=== PATIENT | male | born 1980 | race Hispanic/Latino ===

== ENCOUNTER 2020-07-06 14:04 | Inpatient (IN) | payer SELFPAY ==
[2020-07-06 15:33] LABS: ALT (SGPT) 65 U/L (8-55); AST (SGOT) 93 U/L (5-34); Albumin 3.3 g/dL (3.5-5.0); Alkaline Phosphatase 58 U/L (40-110); Anion Gap 11 mmol/L (10-20); BUN (Urea Nitrogen) 10 mg/dL (8.9-20.6); Calc. Creatinine Clearance 0 mL/min (70-130); Calcium 8.3 mg/dL (7.8-10.44); Carbon Dioxide 26 mmol/L (22-29); Chloride 98 mmol/L (98-107); Globulin 3.1 g/dL (2.4-3.5); Glucose 137 mg/dL (70-105); Potassium 3.8 mmol/L (3.5-5.1); Protein, Total 6.4 g/dL (6.0-8.3); Sodium 131 mmol/L (136-145)
[2020-07-06 15:36] LABS: #Monocytes 0.3 10x3/uL (0.0-1.1); #Neutrophils 6.5 10x3/uL (1.5-8.4); %Basophils 0.1 % (0.0-2.0); %Lymphocytes 6.1 % (18.0-47.0); %Monocytes 3.9 % (0.0-10.0); %Neutrophils 89.2 % (40.0-75.0); Hemoglobin 14.1 g/dL (13.5-17.5); Mean Corpuscular HGB CONC 34.6 g/dL (32.0-36.0); Mean Corpuscular Hemoglobin 29.3 pg (27.0-33.0); Mean Corpuscular Volume 84.4 fl (81.2-95.1); Mean Platelet Volume 10.5 fl (7.4-10.4); Platelet Count 155 10x3/uL (150-450); RBC Distribution Width 12.1 % (11.5-14.5); Red Blood Cell (RBC) Count 4.82 10x6/uL (4.32-5.72); White Blood Cell (WBC) Count 7.3 10x3/uL (3.5-10.5)
[2020-07-06] MEDS ORDERED: Dexamethasone 10 MG/ML VIAL ONE (15:40)
[2020-07-06] MEDS ORDERED: Acetaminophen 500 MG TAB ONE (15:40)
[2020-07-06] MEDS ORDERED: Guaifenesin DM 100-10/5 ML UDCUP PO PRN (16:53)
[2020-07-06] MEDS ORDERED: HYDROcodone/Acetaminophen 5/325 mg Tablet PO PRN (16:53)
[2020-07-06] MEDS ORDERED: Ondansetron PF 4 MG/2 ML Vial IVP PRN (16:53)
[2020-07-06] MEDS ORDERED: Bisacodyl 5 MG TAB PO PRN (16:53)
[2020-07-06] MEDS ORDERED: Acetaminophen 325 MG TAB PO PRN (16:53)
[2020-07-06] MEDS ORDERED: cefTRIAXone\\ROCEPHIN 1 GM in Sodium Chloride 0.9% 100 ML IVPB SCH (17:00)
[2020-07-06 19:52] VITALS: BMI 32.3
[2020-07-06] MEDS: Cefepime 2 GM in Sodium Chloride 0.9% 100 ML IVPB SCH (21:35)
[2020-07-07 04:05] LABS: Legionella Urinary Ag Negative (Negative); Strep pneumo Urine Ag NEGATIVE (NEGATIVE)
[2020-07-07 07:30] LABS: #Monocytes 0.2 10x3/uL (0.0-1.1); #Neutrophils 4.9 10x3/uL (1.5-8.4); %Basophils 0.2 % (0.0-2.0); %Lymphocytes 8.4 % (18.0-47.0); %Monocytes 4.3 % (0.0-10.0); %Neutrophils 86.7 % (40.0-75.0); Hemoglobin 13.7 g/dL (13.5-17.5); Mean Corpuscular HGB CONC 33.9 g/dL (32.0-36.0); Mean Corpuscular Hemoglobin 29.1 pg (27.0-33.0); Mean Platelet Volume 10.1 fl (7.4-10.4); Platelet Count 197 10x3/uL (150-450); RBC Distribution Width 12.1 % (11.5-14.5); White Blood Cell (WBC) Count 5.6 10x3/uL (3.5-10.5)
[2020-07-07 07:53] LABS: Anion Gap 12 mmol/L (10-20); BUN (Urea Nitrogen) 13 mg/dL (8.9-20.6); Calc. Creatinine Clearance 183 mL/min (70-130); Calcium 8.4 mg/dL (7.8-10.44); Carbon Dioxide 24 mmol/L (22-29); Chloride 105 mmol/L (98-107); Glucose 142 mg/dL (70-105); Potassium 4.1 mmol/L (3.5-5.1); Sodium 137 mmol/L (136-145)
[2020-07-07] MEDS: Aspirin 81 mg Enteric Coated Tablet PO SCH (08:49)
[2020-07-07] MEDS: Ascorbic Acid 500 mg Chewable Tablet PO SCH (08:49)
[2020-07-07] MEDS: Enoxaparin Sodium 40 MG/0.4 ML SYRINGE SC SCH (08:50)
[2020-07-07] MEDS: Cefepime 2 GM in Sodium Chloride 0.9% 100 ML IVPB SCH ×2 (08:50→20:46)
[2020-07-07] MEDS: Zinc Sulfate 220 MG CAP PO SCH (08:50)
[2020-07-07] MEDS ORDERED: Dexamethasone 4 mg/ml Vial SLOW IVP SCH (09:00)
[2020-07-07] MEDS ORDERED: Cefepime 2 GM VIAL ONE (20:28)
[2020-07-08] MEDS: Aspirin 81 mg Enteric Coated Tablet PO SCH (08:16)
[2020-07-08] MEDS: Cefepime 2 GM in Sodium Chloride 0.9% 100 ML IVPB SCH ×2 (08:16→20:11)
[2020-07-08] MEDS: Ascorbic Acid 500 mg Chewable Tablet PO SCH (08:16)
[2020-07-08] MEDS: Zinc Sulfate 220 MG CAP PO SCH (08:17)
[2020-07-08] MEDS: Enoxaparin Sodium 40 MG/0.4 ML SYRINGE SC SCH (08:17)
[2020-07-08] MEDS: Dexamethasone 20 MG/5 ML VIAL SLOW IVP SCH (08:17)
[2020-07-08 08:19] LABS: ALT (SGPT) 108 U/L (8-55); AST (SGOT) 96 U/L (5-34); Alkaline Phosphatase 70 U/L (40-110); Anion Gap 12 mmol/L (10-20); BUN (Urea Nitrogen) 15 mg/dL (8.9-20.6); Bilirubin, Total 0.6 mg/dL (0.2-1.2); Calc. Creatinine Clearance 181 mL/min (70-130); Calcium 8.5 mg/dL (7.8-10.44); Carbon Dioxide 24 mmol/L (22-29); Chloride 107 mmol/L (98-107); Globulin 3.2 g/dL (2.4-3.5); Glucose 156 mg/dL (70-105); Potassium 4.5 mmol/L (3.5-5.1); Protein, Total 6.2 g/dL (6.0-8.3); Sodium 138 mmol/L (136-145)
[2020-07-08 08:40] LABS: #Monocytes 0.5 10x3/uL (0.0-1.1); #Neutrophils 5.6 10x3/uL (1.5-8.4); %Lymphocytes 10.5 % (18.0-47.0); %Monocytes 7.8 % (0.0-10.0); Mean Corpuscular HGB CONC 33.6 g/dL (32.0-36.0); Mean Corpuscular Volume 86.3 fl (81.2-95.1); Mean Platelet Volume 10.1 fl (7.4-10.4); Platelet Count 264 10x3/uL (150-450); RBC Distribution Width 12.1 % (11.5-14.5); Red Blood Cell (RBC) Count 4.83 10x6/uL (4.32-5.72); White Blood Cell (WBC) Count 6.9 10x3/uL (3.5-10.5)
[2020-07-09 08:07] LABS: #Monocytes 0.7 10x3/uL (0.0-1.1); #Neutrophils 5.1 10x3/uL (1.5-8.4); %Basophils 0.2 % (0.0-2.0); %Lymphocytes 10.1 % (18.0-47.0); %Monocytes 10.6 % (0.0-10.0); %Neutrophils 77.9 % (40.0-75.0); Hemoglobin 13.3 g/dL (13.5-17.5); Mean Corpuscular HGB CONC 33.8 g/dL (32.0-36.0); Mean Corpuscular Hemoglobin 29.1 pg (27.0-33.0); Mean Corpuscular Volume 86.2 fl (81.2-95.1); Mean Platelet Volume 9.6 fl (7.4-10.4); Platelet Count 287 10x3/uL (150-450); RBC Distribution Width 11.9 % (11.5-14.5); Red Blood Cell (RBC) Count 4.57 10x6/uL (4.32-5.72); White Blood Cell (WBC) Count 6.5 10x3/uL (3.5-10.5)
[2020-07-09 08:34] LABS: ALT (SGPT) 145 U/L (8-55); AST (SGOT) 70 U/L (5-34); Alkaline Phosphatase 69 U/L (40-110); Anion Gap 12 mmol/L (10-20); BUN (Urea Nitrogen) 14 mg/dL (8.9-20.6); Bilirubin, Total 0.6 mg/dL (0.2-1.2); Calc. Creatinine Clearance 183 mL/min (70-130); Calcium 8.4 mg/dL (7.8-10.44); Carbon Dioxide 24 mmol/L (22-29); Chloride 107 mmol/L (98-107); Globulin 2.9 g/dL (2.4-3.5); Glucose 132 mg/dL (70-105); Potassium 4.2 mmol/L (3.5-5.1); Protein, Total 5.9 g/dL (6.0-8.3); Sodium 139 mmol/L (136-145)
[2020-07-09 08:36] LABS: ALT (SGPT) 146 U/L (8-55); AST (SGOT) 71 U/L (5-34); Alkaline Phosphatase 69 U/L (40-110); Bilirubin, Direct 0.3 mg/dL (0.1-0.3); Bilirubin, Total 0.6 mg/dL (0.2-1.2)
[2020-07-09] MEDS: Dexamethasone 20 MG/5 ML VIAL SLOW IVP SCH (08:45)
[2020-07-09] MEDS: Cefepime 2 GM in Sodium Chloride 0.9% 100 ML IVPB SCH ×2 (08:45→20:31)
[2020-07-09] MEDS: Enoxaparin Sodium 40 MG/0.4 ML SYRINGE SC SCH (08:45)
[2020-07-09] MEDS: Aspirin 81 mg Enteric Coated Tablet PO SCH (08:45)
[2020-07-09] MEDS: Ascorbic Acid 500 mg Chewable Tablet PO SCH (08:45)
[2020-07-09] MEDS: Zinc Sulfate 220 MG CAP PO SCH (09:00)
[2020-07-10 05:55] LABS: ALT (SGPT) 148 U/L (8-55); AST (SGOT) 45 U/L (5-34); Albumin 3.3 g/dL (3.5-5.0); Alkaline Phosphatase 71 U/L (40-110); Anion Gap 13 mmol/L (10-20); BUN (Urea Nitrogen) 13 mg/dL (8.9-20.6); Bilirubin, Total 0.7 mg/dL (0.2-1.2); Calc. Creatinine Clearance 186 mL/min (70-130); Calcium 8.8 mg/dL (7.8-10.44); Carbon Dioxide 24 mmol/L (22-29); Chloride 105 mmol/L (98-107); Glucose 121 mg/dL (70-105); Potassium 4.1 mmol/L (3.5-5.1); Protein, Total 6.3 g/dL (6.0-8.3); Sodium 138 mmol/L (136-145)
[2020-07-10 05:58] LABS: #Monocytes 0.7 10x3/uL (0.0-1.1); #Neutrophils 5.3 10x3/uL (1.5-8.4); %Basophils 0.3 % (0.0-2.0); %Lymphocytes 12.2 % (18.0-47.0); %Monocytes 10.2 % (0.0-10.0); %Neutrophils 72.4 % (40.0-75.0); Hemoglobin 14.3 g/dL (13.5-17.5); Mean Corpuscular Hemoglobin 29.1 pg (27.0-33.0); Mean Corpuscular Volume 85.6 fl (81.2-95.1); Mean Platelet Volume 9.8 fl (7.4-10.4); Platelet Count 332 10x3/uL (150-450); RBC Distribution Width 11.8 % (11.5-14.5); Red Blood Cell (RBC) Count 4.92 10x6/uL (4.32-5.72); White Blood Cell (WBC) Count 7.3 10x3/uL (3.5-10.5)
[2020-07-10] MEDS: Cefepime 2 GM in Sodium Chloride 0.9% 100 ML IVPB SCH ×2 (08:16→20:07)
[2020-07-10] MEDS: Zinc Sulfate 220 MG CAP PO SCH (08:16)
[2020-07-10] MEDS: Aspirin 81 mg Enteric Coated Tablet PO SCH (08:16)
[2020-07-10] MEDS: Dexamethasone 20 MG/5 ML VIAL SLOW IVP SCH (08:16)
[2020-07-10] MEDS: Ascorbic Acid 500 mg Chewable Tablet PO SCH (08:16)
[2020-07-10] MEDS: Enoxaparin Sodium 40 MG/0.4 ML SYRINGE SC SCH (08:17)
[2020-07-10 12:11] LABS: HBCM Index 0.11 S/CO (0-0.79); HBSAg Index 0.22 S/CO (0-0.99); Hep A IgM AB Non-Reactive (NonReactive); Hep A IgM S/CO 0.29 S/CO (0-0.79); Hep B Surf Ag Non-Reactive S/CO (NonReactive); Hep C IgG Ab Non-Reactive (NonReactive); Hep C Index 0.06 S/CO (0-0.79); Hepatitis B Core IgM Abs Non-Reactive (NonReactive)
[2020-07-11] MEDS: Enoxaparin Sodium 40 MG/0.4 ML SYRINGE SC SCH (08:48)
[2020-07-11] MEDS: Dexamethasone 20 MG/5 ML VIAL SLOW IVP SCH (08:49)
[2020-07-11] MEDS: Cefepime 2 GM in Sodium Chloride 0.9% 100 ML IVPB SCH ×2 (08:49→20:18)
[2020-07-11] MEDS: Ascorbic Acid 500 mg Chewable Tablet PO SCH (08:59)
[2020-07-11] MEDS: Zinc Sulfate 220 MG CAP PO SCH (08:59)
[2020-07-11] MEDS: Aspirin 81 mg Enteric Coated Tablet PO SCH (08:59)
[2020-07-12] MEDS: Dexamethasone 20 MG/5 ML VIAL SLOW IVP SCH (08:50)
[2020-07-12] MEDS: Cefepime 2 GM in Sodium Chloride 0.9% 100 ML IVPB SCH ×2 (08:50→20:36)
[2020-07-12] MEDS: Aspirin 81 mg Enteric Coated Tablet PO SCH (08:50)
[2020-07-12] MEDS: Zinc Sulfate 220 MG CAP PO SCH (08:50)
[2020-07-12] MEDS: Ascorbic Acid 500 mg Chewable Tablet PO SCH (08:50)
[2020-07-12] MEDS: Enoxaparin Sodium 40 MG/0.4 ML SYRINGE SC SCH (08:55)
[2020-07-13 09:01] VITALS: BP 110/74; TEMP 98
[2020-07-13] MEDS: Aspirin 81 mg Enteric Coated Tablet PO SCH (09:25)
[2020-07-13] MEDS: Ascorbic Acid 500 mg Chewable Tablet PO SCH (09:25)
[2020-07-13] MEDS: Enoxaparin Sodium 40 MG/0.4 ML SYRINGE SC SCH (09:25)
[2020-07-13] MEDS: Dexamethasone 20 MG/5 ML VIAL SLOW IVP SCH (09:25)
[2020-07-13] MEDS: Cefepime 2 GM in Sodium Chloride 0.9% 100 ML IVPB SCH (09:27)
[2020-07-13] MEDS: Zinc Sulfate 220 MG CAP PO SCH (09:27)
== END 2020-07-13 11:28 | disposition home or self-care (01) | DRG 177 ==
LOC: CSHERS 14:04 → CSHTELE 17:43
PROVIDERS: ADMIT Internal Medicine; ATTEND Family Medicine
PROC: 8E0ZXY6 Isolation (ICD-10-PCS; principal; 2020-07-06)
DX: U07.1 COVID-19 (principal); J12.82 Pneumonia due to coronavirus disease 2019; J96.01 Acute respiratory failure with hypoxia; R74.01 Elevation of levels of liver transaminase levels; T38.0X5A Adverse effect of glucocorticoids and synthetic analogues, initial encounter
CPT/HCPCS: 36415; 71045; 80048; 80053; 80074; 82728; 83605; 83615; 85025; 85379; 86140; 87040; 87070; 87205; 87449; 87899; 93005; 94760; 94799; 96374; J0692; J1100; J1650; J3490